=== PATIENT | female | born 1975 | race Caucasian/White ===

== ENCOUNTER 2019-01-13 16:17 | Emergency (ER) | payer OTHER ==
[2019-01-13 16:28] VITALS: BP 150/93; PULSE 91; RESP 16; TEMP 98.4
--- NOTE | 2019-01-13 17:50 | XR ---
EXAMINATION TYPE: XR knee complete RT DATE OF EXAM: 01/13/2019 COMPARISON: NONE HISTORY: Knee pain TECHNIQUE: 4 views FINDINGS: There is some lateral tibial subluxation. There is moderate spurring of the femoral and tib ial condyles. There is spurring on the patella. I see no fracture nor dislocation. IMPRESSION: Moderate osteoarthritis. No fracture seen.
--- NOTE | 2019-01-13 18:17 | US ---
EXAMINATION TYPE: US venous doppler duplex LE RT DATE OF EXAM: 01/13/2019 5:27 PM COMPARISON: NONE CLINICAL HISTORY: Pain. Right leg pain. SIDE PERFORMED: Right TECHNIQUE: The lower extremity deep venous system is examined utilizing real time linear array sonog nona with graded compression, doppler sonography and color-flow sonography. VESSELS IMAGED: External Iliac Vein (EIV) Common Femoral Vein Deep Femoral Vein Greater Saphenous Vein * Femoral Vein Popliteal Vein Small Saphenous Vein * Proximal Calf Veins (* superficial vessels) Right Leg: Negative for DVT No evidence of DVT right leg. IMPRESSION: No evidence of deep venous thrombosis in the right leg. Negative exam.
--- NOTE | 2019-01-13 18:44 | ED ---
General Adult HPI - General Chief complaint: Extremity Problem,Nontraumatic Stated complaint: rt knee pain Time Seen by Provider: 01/13/19 17:23 Source: patient, RN notes reviewed, old records reviewed Mode of arrival: ambulatory Limitations: no limitations - History of Present Illness Initial comments: 43-year-old female presenting with knee pain. Patient has history of osteoarthritis, states she does have some chronic knee pain however this does feel somewhat different. She states her pain is been present for the past 4 hours. She denies any injury, denies overuse, denies moving or twisting wrong on this knee. She denies lower extremity numbness or tingling. She does have some shooting pain in her thigh. No back pain. No hip pain. No chest pain or dyspnea. - Related Data Home Medications Medication Instructions Recorded Confirmed ALPRAZolam [Xanax] 0.5 mg PO BID PRN 01/13/19 01/13/19 Cholecalciferol [Vitamin D3 (25 5,000 unit PO DAILY 01/13/19 01/13/19 Mcg = 1000 Iu)] HYDROcodone/APAP 7.5-325MG [[place] 1 tab PO BID PRN 01/13/19 01/13/19 7.5-325] Loxapine Succinate [Loxapine] 10 mg PO HS 01/13/19 01/13/19 PARoxetine [Paxil] 20 mg PO HS 01/13/19 01/13/19 busPIRone HCl [Buspar] 5 mg PO BID 01/13/19 01/13/19 Previous Rx's Medication Instructions Recorded Ibuprofen [Motrin] 600 mg PO Q8HR PRN #24 tab 01/13/19 Allergies Allergy/AdvReac Type Severity Reaction Status Date / Time No Known Allergies Allergy Verified 01/13/19 17:18 Review of Systems ROS Statement: Those systems with pertinent positive or pertinent negative responses have been documented in the HPI. ROS Other: All systems not noted in ROS Statement are negative. Past Medical History Additional Past Medical History / Comment(s): Arthritits. marilou pierce 2008. kidney stones History of Any Multi-Drug Resistant Organisms: None Reported Past Surgical History: Cholecystectomy Past Psychological History: No Psychological Hx Reported Smoking Status: Former smoker Past Alcohol Use History: None Reported Past Drug Use History: None Reported General Exam Limitations: no limitations General appearance: alert, in no apparent distress Head exam: Present: atraumatic, normocephalic Eye exam: Present: normal appearance, PERRL Neck exam: Present: normal inspection. Absent: tenderness, meningismus Respiratory exam: Present: normal lung sounds bilaterally. Absent: respiratory distress, wheezes Cardiovascular Exam: Present: regular rate, normal rhythm GI/Abdominal exam: Present: soft. Absent: distended, tenderness, guarding Extremities exam: Present: normal inspection, normal capillary refill. Absent: full ROM (Pain with range of motion at the knee, no effusion, no warmth or erythema), pedal edema, calf tenderness Back exam: Present: normal inspection. Absent: full ROM, tenderness Neurological exam: Present: alert, oriented X3, CN II-XII intact. Absent: motor sensory deficit Skin exam: Present: warm, dry, intact. Absent: cyanosis, diaphoretic Course Vital Signs 01/13/19 16:24 Temperature 98.4 F Pulse Rate 91 Respiratory 16 Rate Blood Pressure 150/93 O2 Sat by Pulse 95 Oximetry Medical Decision Making - Medical Decision Making 43-year-old female with atraumatic right knee pain. Patient has some minimal pain with range of motion, no signs of infection. Distal pulses are 2+ both DP and PT pulses. She has no sensory deficit. No deformity. X-rays obtained, shows*arthritis with some spurring. No acute fracture dislocation. Ultrasound negative for DVT. Patient will take Tylenol Motrin for pain. Return with worsening symptoms, development of fever Disposition Clinical Impression: Osteoarthritis Disposition: HOME SELF-CARE Condition: Good Instructions (If sedation given, give patient instructions): Osteoarthritis (ED), Knee Sprain (ED) Prescriptions: Ibuprofen [Motrin] 600 mg PO Q8HR PRN #24 tab PRN Reason: Pain Is patient prescribed a controlled substance at d/c from ED?: No Referrals: Dasia Chahal MD [Primary Care Provider] - 1-2 days Time of Disposition: 18:44
== END 2019-01-13 19:03 | disposition home or self-care (01) ==
LOC: EC 16:17
DX: M17.11 Unilateral primary osteoarthritis, right knee (principal); M79.659 Pain in unspecified thigh; Z87.891 Personal history of nicotine dependence; Z79.899 Other long term (current) drug therapy
CPT/HCPCS: 99284